=== PATIENT | male | born 1950 | race African-American/Black ===

== ENCOUNTER 2023-10-05 12:58 | Outpatient (AMB) | payer MEDICARE, MEDICAID, SELFPAY ==
--- NOTE | 2023-10-05 13:07 | MHC.OFFVIS ---
Vital Signs 10/05/23 13:16 Height 5 ft 11 in Weight 202 lb 4 oz BMI 28.2 BP 134/70 Blood Pressure Location Lt brachial Position Sitting Pulse 77 Pulse Source Pulse Oximeter Pulse Oximetry (%) 96 Oxygen Delivery Method Room Air Intake Visit Reasons: ENP: Alzheimers dementia - Confirmed Intake Note: Patient presents for Alzheimers dementia. Allergies aspirin Allergy (Verified 10/05/23 13:11) Unknown haloperidol Allergy (Verified 10/05/23 13:11) Unknown metformin Allergy (Verified 10/05/23 13:11) Unknown Penicillins Allergy (Verified 10/05/23 13:11) Unknown Medication List - Last Reconciled 10/05/23 by Nimo Carvajal MD albuterol sulfate 90 mcg/actuation inhalation amlodipine 10 mg PO DAILY atenolol mg PO carbamazepine ER 300 mg PO BID cholecalciferol (vitamin D3) 50 mcg PO DAILY clopidogrel 75 mg PO DAILY docusate sodium 100 mg PO BID fluphenazine HCl 10 mg PO BID hydrochlorothiazide 25 mg PO DAILY insulin aspart (niacinamide) 100 unit/mL (Fiasp U-100 Insulin) subcut insulin glargine (Basaglar KwikPen U-100 Insulin) units subcut insulin syringe-needle U-100 (BD Insulin Syringe Ultra-Fine) As directed labetalol 200 mg PO BID levothyroxine 125 mcg PO DAILY lisinopril 40 mg PO DAILY lorazepam 0.5 mg PO DAILY montelukast 10 mg PO DAILY multivitamin with folic acid 400 mcg (Daily-Jyoti (with folic acid)) 1 tab PO DAILY nifedipine ER 30 mg PO DAILY olanzapine mg PO pen needle, diabetic (BD Ultra-Fine Short Pen Needle) As directed sennosides (senna) 17.2 mg PO DAILY tiotropium bromide 1 cap inhalation DAILY HPI Comments Details: 72y/o male with Paranoid schizophrenia, HTN , diabetes , seizures comes for evaluation of dementia He lives in a Assisted and is accompanied by his warp tier from [facility]. He had a admission 06/04/22 at [facility] for HTN urgency - stroke was ruled out.He presented with excessive drooling dysarthria .MRI did not show any acute changes . He had 2-3 admissions in last 3 months for syncope ? seizure Patient reports difficulty concentrating, and says that his memory is fading. No further h/o available. [facility] Medical History (Updated 10/05/23 @ 13:37 by Nimo Carvajal MD) Dementia Pericarditis Insomnia Pulmonary emphysema Hepatitis Renal cyst, left COPD (chronic obstructive pulmonary disease) Hypertension Type 2 diabetes mellitus with renal manifestations Schizophrenia Hypothyroidism Hyperlipidemia GERD (gastroesophageal reflux disease) Microalbuminuria Elevated liver enzymes Constipation Tobacco use disorder Surgical History History of surgery on lower extremity Social History Household Members Other:: alf Housing: House Alcohol intake: never Patient Tobacco Use Status: Current someday Tobacco user Tobacco use type: Cigarette Cigarette Packs Per Day: 1 Years Smoked: 30-40 years Physical Exam Vital Signs: Last Vital Signs Pulse 77 10/05/23 13:16 BP 134/70 10/05/23 13:16 Pulse Ox 96 10/05/23 13:16 Oxygen Delivery Method Room Air 10/05/23 13:16 BMI result Body Mass Index 28.2 Const General: cooperative, healthy appearing and comfortable Nutritional Appearance: average body habitus Orientation/consciousness: oriented to person and oriented to place Neuro Other: mild left facial weakness MMSE 16/25 General: oriented to person and oriented to place Cranial nerves: Yes Bilaterally intact EOM present, Yes Nystagmus not present, Yes Midline tongue present and Yes Ability to bilaterally elevate shoulders present Cognition (Neuro): abnormal cognition Gait exam (Neuro): Antalgic gait present and Other gait observations present (wide based ) Motor exam (neuro): 5/5 motor strength present throughout and Normal motor muscle tone present throughout Deep tendon reflexes (DTR's): Right triceps reflex intensity grade: 1+, Left triceps reflex intensity grade: 1+, Rt Biceps (C5, C6): 1+, Left biceps reflex intensity grade: 1+, Right brachioradialis reflex intensity grade: 1+, Left brachioradialis reflex intensity grade: 1+, Right patellar reflex intensity grade: 1+ and Left patellar reflex intensity grade: 1+ Coordination: [id number] test normal Orientation What is the (year) (season) (date) (day) (month)?: year, season and day Where are we (state) (county) (town or city) (hospital) (floor)?: state, county, town or city, hospital/clinic and floor Registration Name of 3 unrelated objects clearly and slowly, then ask patient to repeat all 3 of them. (1st repeat determines score. Make sure they can repeat all three): object 1, object 2 and object 3 Language Show patient a wristwatch & ask what it is. Repeat for pencil.: watch and pencil Ask the patient to repeat the phrase 'No ifs, ands, or buts' after you.: correct Ask the patient to 'take a piece of paper with their right hand' 'fold paper in half' 'place paper on floor': take paper in right hand Print the sentence 'CLOSE YOUR EYES' on a piece. If patient actually closes eyes then score.: followed written direction Score Score: 16 Assessment & Plan Assessment & Plan (1) Dementia: Comment: likely vascular or mixed - Risk factors HTN DM SMoking Code(s): F0. - Unspecified dementia, unspecified severity, without behavioral disturbance, psychotic disturbance, mood disturbance, and anxiety Category: Medical Plan Discussed about risk factor reduction - HTN DM smoking cessation continue clopidogrel 75mg qd I will trial him [id number] qd for 2 weeks then 10 mg bid F/u as needed MRI Brain form [facility] for review I will check his TSH VIT B12 RPR Orders: Orders TSH reflex Free T4 Today .90 - Unspecified dementia, unspecified severity, without behavioral disturbance, psychotic disturbance, mood disturbance, and anxiety Erythrocyte Sedimentation Rate Today .90 - Unspecified dementia, unspecified severity, without behavioral disturbance, psychotic disturbance, mood disturbance, and anxiety Vitamin B12 and Folate Today F03.90 - Unspecified dementia, unspecified severity, without behavioral disturbance, psychotic disturbance, mood disturbance, and anxiety Complete Blood Count Auto Diff Today F0.90 - Unspecified dementia, unspecified severity, without behavioral disturbance, psychotic disturbance, mood disturbance, and anxiety Comprehensive Met. Panel Today 3.90 - Unspecified dementia, unspecified severity, without behavioral disturbance, psychotic disturbance, mood disturbance, and anxiety RPR Monitor reflex titer Today .90 - Unspecified dementia, unspecified severity, without behavioral disturbance, psychotic disturbance, mood disturbance, and anxiety Medications: New memantine 1 tab qd for 2 weeks then 1 tab bid orally; 60 tabs 6RF Coding Level of Care Code New Pt Level 4 (60938) Diagnoses Dementia F03.
[2023-10-05 13:16] VITALS: BP 134/70; PULSE 77; O2SAT 96; BMI 28.2
== END 2023-10-05 13:49 | disposition home or self-care (01) ==
PROVIDERS: PCP Internal Medicine; Visit Provider Psychiatry & Neurology Neurology
DX: F03.90 Unspecified dementia, unspecified severity, without behavioral disturbance, psychotic disturbance, mood disturbance, and anxiety (principal)
CPT/HCPCS: 99204

== ENCOUNTER → 2023-10-05 12:58 | Outpatient (BNVA) | payer MEDICARE, MEDICAID, SELFPAY | PROVIDERS: PCP Internal Medicine; Visit Provider Psychiatry & Neurology Neurology | DX: F03.90 Unspecified dementia, unspecified severity, without behavioral disturbance, psychotic disturbance, mood disturbance, and anxiety (principal) | CPT/HCPCS: 36415; 80053; 82607; 82746; 84443; 85025; 85652; 99202 ==

== ENCOUNTER 2023-10-05 13:51 | Outpatient (REF) | payer MEDICARE, MEDICAID, SELFPAY ==
[2023-10-05 17:57] LABS: MANUAL DIFF FLAG NO
[2023-10-05 18:03] LABS: Basophils Percent Auto 0.4 % (0-2); Eosinophils Absolute Auto 0.2 X10*3/uL (0.0-0.4); Eosinophils Percent Auto 4.3 % (0-4); Hematocrit 41.6 % (42.0-52.0); Hemoglobin 14.9 g/dl (14.0-18.0); Imm Gran Abs Auto 0.12 X10*3/uL (0.00-0.03); Imm Gran Pct Auto 2.4 % (0.0-0.4); Lymphocytes Absolute Auto 1.3 X10*3/uL (1.2-4.9); Lymphocytes Percent Auto 25.7 % (20-40); Mean Corpuscular HGB Conc 35.8 g/dl (31.0-36.0); Mean Platelet Volume 10.9 fL (9.4-12.4); Monocytes Absolute Auto 0.6 X10*3/uL (0.1-1.2); Monocytes Percent Auto 12.5 % (2-11); Neutrophils Absolute Auto 2.8 x10*3/uL (2.0-8.3); Neutrophils Percent Auto 54.7 % (45-73); Platelet Count 234 X10*3/uL (160-400); Red Blood Count 4.52 X10*6/uL (4.60-5.80); Red Cell Distribution Width 12.6 % (11.0-16.0); White Blood Count 5.1 X10*3/uL (4.8-10.8)
[2023-10-05 18:58] LABS: Alanine Aminotransferase 94 U/L (0-40); Albumin Level 2.9 g/dL (3.5-5.0); Alkaline Phosphatase 112 U/L (39-117); Anion Gap 13 (12-20); Aspartate Amino Transferase 92 U/L (5-37); Bilirubin Total 0.4 mg/dL (0.0-1.0); Blood Urea Nitrogen 21 mg/dL (9-16); Calcium 8.7 mg/dL (8.4-10.2); Carbon Dioxide 27 mmol/L (22-29); Chloride 100 mmol/L (96-108); Estimated Glomerular Filt Rate 44; Glucose Random 336 mg/dL (60-115); Potassium 3.9 mmol/L (3.3-5.1); Sodium 136 mmol/L (135-145); Total Protein 7.2 g/dL (6.5-8.0)
[2023-10-05 19:15] LABS: TSH reflex Free T4 0.74 uIU/mL (0.32-4.0)
[2023-10-05 19:22] LABS: Folate 16.2 ng/mL (> or = 4.0); Vitamin B12 754 pg/mL (200-900)
[2023-10-05 19:28] LABS: Erythrocyte Sedimentation Rate 29 MM/HR (0-15)
== END 2023-10-05 13:52 | disposition home or self-care (01) ==
LOC: HO.HKASLDS 13:51
PROVIDERS: Visit Provider Psychiatry & Neurology Neurology
DX: Z13.89 Encounter for screening for other disorder (principal)
CPT/HCPCS: 36415; 80053; 82607; 82746; 84443; 85025; 85652